=== PATIENT | male | born 1990 | race Two or more races ===

== ENCOUNTER → 2018-05-10 | Outpatient (CLI) | payer OTHER ==
--- NOTE | 2018-05-10 17:55 | RADIOLOGY IMAGING REPORT ---
FACILITY: [facility] PATIENT NAME: Erick Chaudhary : 1990 MR: [id number] V: [id number] EXAM DATE: ORDERING PHYSICIAN: ISAAC ROWELL TECHNOLOGIST: [place] [facility] [place]: Erick Chaudhary : 1990 Visit/Account:[id number] Date of Sevice: 05/10/2018 Exam type: TOE RIGHT FOOT GREAT TOE History: Right toe pain after stubbing toe two weeks ago, tender over medial aspect with purple disco loration Comparison: None. Findings: Two views of the right great toe demonstrate soft tissue spine stranding the IP joint. No definite f racture or dislocation is seen. No radiopaque soft tissue foreign bodies identified IMPRESSION: 1. Soft tissue spine surrounding the IP joint of the right great toe although no definite fracture o r dislocation seen. If symptoms persist follow-up imaging recommended to exclude occult injury Report Dictated By: Vivi Nation MD at 05/10/2018 5:50 PM Report E-Signed By: Vivi Nation MD at 05/10/2018 5:52 PM WSN:[id number]
== END ==
LOC: RAD 16:17
PROVIDERS: ATTEND Nurse Practitioner
DX: M79.674 Pain in right toe(s) (principal)